=== PATIENT | male | born 1960 | race Caucasian/White ===

== ENCOUNTER → 2023-10-11 06:29 | Outpatient (REF) | payer BC, SELFPAY | LOC: REG 06:29 | PROVIDERS: ATTENDING PHYSICIAN Specialist | DX: R97.20 Elevated prostate specific antigen [PSA] (principal) | CPT/HCPCS: 36415; 84153; 84154 ==

== ENCOUNTER → 2024-02-22 06:21 | Outpatient (REF) | payer BC, SELFPAY | LOC: RAD 06:21 | PROVIDERS: ATTENDING PHYSICIAN Family Medicine | DX: Z87.891 Personal history of nicotine dependence (principal) | CPT/HCPCS: 71271 ==

== ENCOUNTER → 2024-03-18 06:21 | Outpatient (REF) | payer BC, SELFPAY | LOC: RAD 06:21 | PROVIDERS: ATTENDING PHYSICIAN Family Medicine | DX: K76.89 Other specified diseases of liver (principal) | CPT/HCPCS: 76700 ==

== ENCOUNTER → 2024-03-24 06:21 | Outpatient (REF) | payer BC, SELFPAY ==
[2024-03-25 23:46] LABS: PSA Total 6.5 ng/mL (0.0-4.0)
== END ==
LOC: REG 06:21
PROVIDERS: ATTENDING PHYSICIAN Specialist; FAMILY PHYSICIAN Family Medicine
DX: R97.20 Elevated prostate specific antigen [PSA] (principal)
CPT/HCPCS: 36415; 84153; 84154

== ENCOUNTER → 2024-08-01 06:24 | Outpatient (REF) | payer BC, SELFPAY ==
[2024-08-01 07:39] LABS: Urine Albumin Negative (Neg - Trace); Urine Bilirubin Negative (Negative); Urine Character Clear (Clear); Urine Color Yellow; Urine Glucose Negative (Negative); Urine Ketone Negative (Negative); Urine Leukocyte Negative (Negative); Urine Nitrite Negative (Negative); Urine Occult Blood Negative (Negative); Urine Specific Gravity 1.025 (<1.030); Urine Urobilinogen Negative (Neg - 1+)
[2024-08-01 07:39] LABS: % Basophils 0.6 % (0-2); % Eosinophils 4.2 % (0-6); % Immature Granulocytes 0.5 % (0-0.5); % Lymphocytes 23.3 % (20.5-51.1); % Monocytes 7.5 % (1.7-9.3); % Neutrophils 63.9 % (42.2-75.2); Absolute Basophils 0.1 10^3/uL (0-0.2); Absolute Eosinophils 0.4 10^3/uL (0-0.7); Absolute Immature Granulocytes 0.1 10^3/uL (0-0.05); Absolute Lymphocytes 2.4 10^3/uL (1.2-3.4); Absolute Monocytes 0.8 10^3/uL (0.1-0.6); Absolute Neutrophils 6.7 10^3/uL (1.4-6.5); Hematocrit 46.2 % (39.0-52.0); Hemoglobin 15.6 g/dL (13.0-18.0); Mean Corp Hgb Conc. 33.8 g/dL (33.0-37.0); Mean Corpuscular Volume 91.7 fL (80.0-94.0); Nucleated Red Blood Cells % 0 % (-); Platelet Count 225 10^3/uL (130-400); Red Blood Cell Count 5.04 10^6/uL (4.70-6.10); White Blood Cell Count 10.5 10^3/uL (4.8-10.8)
[2024-08-01 08:10] LABS: ALT (SGPT) 29 U/L (0-50); AST (SGOT) 26 U/L (17-59); Albumin 4.8 g/dl (3.5-5.0); Alkaline Phosphatase 64 U/L (38-126); Blood Urea Nitrogen 26 mg/dl (9-20); Calcium 9.3 mg/dl (8.4-10.2); Carbon Dioxide 31 mmol/L (22-30); Chloride 101 mmol/L (98-107); Glucose 90 mg/dl (70-99); HDL Cholesterol 35 mg/dl; LDL Cholesterol, Calculated 86 mg/dl; Potassium 3.8 mmol/L (3.5-5.1); Sodium 144 mmol/L (135-145); Total Bilirubin 0.8 mg/dl (0.2-1.3); Total Cholesterol 154 mg/dl (50-199); Total Protein 7.9 g/dl (6.3-8.2); Triglyceride 169 mg/dl (10-149); Very Low Density Lipoprotein 33 mg/dl (0-30); eGFR > 60.00
[2024-08-01 09:37] LABS: Glycohemoglobin (HgbA1c) 5.6 % (4.0-5.6)
[2024-08-02 22:45] LABS: PSA Total 6.3 ng/mL (0.0-4.0)
== END ==
LOC: REG 06:24
PROVIDERS: ATTENDING PHYSICIAN Family Medicine
DX: R97.20 Elevated prostate specific antigen [PSA] (principal); Z79.899 Other long term (current) drug therapy; R31.29 Other microscopic hematuria; E78.2 Mixed hyperlipidemia; I10 Essential (primary) hypertension
CPT/HCPCS: 36415; 80053; 80061; 81003; 83036; 84153; 84154; 84443; 85025

== ENCOUNTER → 2024-09-22 06:48 | Outpatient (REF) | payer BC, SELFPAY ==
[2024-09-23 17:23] LABS: PSA Total 7.9 ng/mL (0.0-4.0)
== END ==
LOC: REG 06:48
PROVIDERS: ATTENDING PHYSICIAN Specialist; FAMILY PHYSICIAN Family Medicine
DX: R97.20 Elevated prostate specific antigen [PSA] (principal)
CPT/HCPCS: 36415; 84153; 84154

== ENCOUNTER → 2024-10-03 07:42 | Outpatient (REF) | payer BC, SELFPAY | LOC: RCS 07:42 | PROVIDERS: ATTENDING PHYSICIAN Internal Medicine; FAMILY PHYSICIAN Family Medicine | DX: R07.9 Chest pain, unspecified (principal) | CPT/HCPCS: 93017; 93350 ==

== ENCOUNTER → 2024-10-17 07:51 | Outpatient (REF) | payer BC, SELFPAY | LOC: RCS 07:51 | PROVIDERS: ATTENDING PHYSICIAN Internal Medicine; FAMILY PHYSICIAN Family Medicine | DX: R07.9 Chest pain, unspecified (principal) | CPT/HCPCS: 93306 ==

== ENCOUNTER 2024-12-22 08:23 | Emergency (ER) | payer MEDICARE, BC, SELFPAY ==
[2024-12-22 08:33] VITALS: BP 124/78
[2024-12-22 08:45] VITALS: BP 124/78
--- NOTE | 2024-12-22 10:26 | ED.GENMED ---
History of Present Illness
General
Chief Complaint: Cardiac Symptoms
Time Seen by Provider: 12/22/24 10:25
History of Present Illness
History of Present Illness:
Patient is a 64-year-old male with history of hypertension, hyperlipidemia presenting to the emergency department with chest pain. Patient states that he woke up at 7:30 AM. He came to work and developed left-sided chest pain that was pressure.
He had associated diaphoresis. It lasted a minute and then resolved. He walked again and then had the same chest pain that resolved after a few minutes. 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 It
was left-sided with pressure. No nausea or vomiting. No lightheadedness or dizziness. No palpitations. Per chart review he did have a stress test completed in September which was unremarkable.
Past History
Past History
ED Past Medical History: HTN and Hypercholesterolemia
ED Past Surgical History: Other (vocal chord, hernia, lipoma)
Social History
Tobacco: Non-smoker
Phy Exam
Physical Exam
Physical Exam:
GENERAL: in no acute distress
HEENT: normocephalic, extraocular movements intact, moist oral mucosa
NECK: normal inspection
RESPIRATORY: no respiratory distress, clear to auscultation bilaterally
CARDIOVASCULAR: regular rate and rhythm
ABDOMEN/: soft, non-distended, non-tender to palpation, no rebound or guarding
EXTREMITIES: non-tender, no edema/swelling
NEUROLOGIC: awake and alert, moves all extremities
SKIN: warm
Scores
Heart Score for Chest Pain Patients
STEMI patient?: No
History: Moderately Suspicious
ECG: Normal
Age: >/= 65 years
Risk Factors: 1 or 2 Risk Factors
Troponin: </= Normal Limit
Heart Score for Chest Pain Patients: 4
Heart Score Risk: 20.3% MACE over next 6 weeks
Course
Orders/Labs/Results
Orders:
Orders
12/22/24 08:25
EKG [Electrocardiogram (*1)] Stat
Reason for Study: Chest Pain
12/22/24 08:26
EKG- Treatment ONCE
12/22/24 10:26
CR Chest - 2 Views Urgent
Comment:
Reason For Exam: chest pain
12/22/24 10:37
Basic Metabolic Panel Urgent
Complete Blood Count/With Diff Urgent
Troponin I Urgent
12/22/24 11:10
EKG- Treatment ONCE
12/22/24 13:20
Troponin I Urgent
12/22/24 13:30
Electrocardiogram (*1) Urgent
Reason for Study: Chest Pain
Abnormal Lab Results
12/22/24
10:37
WBC 10.9 H 10^3/uL
(4.8-10.8)
Absolute Neuts (auto) 7.2 H 10^3/uL
(1.4-6.5)
Absolute Monos (auto) 0.9 H 10^3/uL
(0.1-0.6)
BUN 24 H mg/dl
(9-20)
12/22/24 10:37
12/22/24 10:37
Vital Signs
Initial and Last Documented VS:
Initial Vital Signs
Temp Pulse Resp BP Pulse Ox
97.6 F 83 14 124/78 97
12/22/24 08:33 12/22/24 08:33 12/22/24 08:33 12/22/24 08:33 12/22/24 08:33
Last Documented Vital Signs
Temp Pulse Resp BP Pulse Ox
97.6 F 79 23 122/97 96
12/22/24 08:33 12/22/24 13:30 12/22/24 13:30 12/22/24 13:00 12/22/24 13:30
MDM/Problems Addressed
Differential Diagnosis Includes:
Patient is a 64-year-old male with history of hypertension, hyperlipidemia presenting to the emergency department with chest pain that started this morning. He has had no recurrent chest pain for the past 2 hours. On arrival vitals unremarkable
and exam is reassuring. Concern for ACS versus unstable angina. History and exam not consistent with PE or dissection. Less likely be pericarditis as there was no recent viral illnesses. Initial EKG per my interpretation normal sinus rhythm with
no ST changes. Will check blood work and chest x-ray. Patient will need delta troponin
*Critical Care Note
Total Time (30-74mins, 75-104mins- exclusive of procedures): Not Applicable
Update Note
Update Note:
Patient remained chest pain-free while he is been in the emergency department. Delta troponin negative. EKG with no changes. Heart score of 4. After shared decision making we will discharge patient with chest pain hotline follow-up. Strict
return precautions given. Will discharge at this time.
ED Attending Note
-
Portions of this chart may have been created with voice recognition software.� Occasional wrong word or��sound alike� substitutions may have occurred due to the inherent limitations of voice recognition software.
Discharge Plan
Departure
Patient Disposition: Home (Routine Discharge)
Date of Disposition: 12/22/24
Time of Disposition: 14:12
Patient with high blood pressure during this ER visit?: No
Discharge Problem:
Chest pain
Instructions: Chest Pain CBC Follow Up
Prescriptions:
No Action
oxycodone-acetaminophen 5 MG/325 MG tablet
1 tab PO Q6HPRN PRN (Reason: pain) Qty: 14 0RF
ondansetron 4 MG tablet,disintegrating
4 mg PO TIDPRN PRN (Reason: nausea/vomiting) Qty: 10 0RF
prednisone 10 MG tablet
10 mg PO .TAPER Qty: 30 0RF
Rx Instructions:
Take 40mg daily x3days, 30mg daily x3days,
20mg daily x3days, 10mg daily x3days.
Referrals:
Lakeshia Becerril MD [Family Provider] -
Activity Restrictions/Additional Instructions:
You were evaluated in the Emergency Department today for chest pain that is likely unstable angina. Your evaluation has shown no signs of medical conditions requiring emergent intervention at this time, however we recommend that you follow up with
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
Please schedule an appointment for follow up with your primary care physician as soon as possible.
Return to the Emergency Department if you experience worsening or uncontrolled chest pain, shortness of breath, light headedness, feeling faint, nausea, vomiting, or any other concerning symptoms.
Thank you for choosing us for your care.
Interventions
Interventions:
*Risk Screen - Suicide Last Done: 12/22/24 10:38
*General Assessment Last Done: 12/22/24 10:38
*Neglect/Abuse Screening Last Done: 12/22/24 11:36
*ED- Fall Risk Assessment Last Done: 12/22/24 11:36
*ED COVID-19 Vaccine History Last Done: 12/22/24 11:36
ED- Pulmonary Assessment Last Done: 12/22/24 10:39
ED- Cardiac Assessment Last Done: 12/22/24 10:39
Discharge Date and Time
Print Language: GUINEAN
[2024-12-22 10:37] VITALS: BMI 32.6
[2024-12-22 10:55] LABS: % Basophils 0.5 % (0-2); % Eosinophils 3.9 % (0-6); % Immature Granulocytes 0.4 % (0-0.5); % Lymphocytes 21.3 % (20.5-51.1); % Monocytes 8.2 % (1.7-9.3); % Neutrophils 65.7 % (42.2-75.2); Absolute Basophils 0.1 10^3/uL (0-0.2); Absolute Eosinophils 0.4 10^3/uL (0-0.7); Absolute Lymphocytes 2.3 10^3/uL (1.2-3.4); Absolute Monocytes 0.9 10^3/uL (0.1-0.6); Absolute Neutrophils 7.2 10^3/uL (1.4-6.5); Hematocrit 44.7 % (39.0-52.0); Mean Corp Hgb Conc. 33.6 g/dL (33.0-37.0); Mean Corpuscular Hgb 30.7 pg (27.0-31.0); Mean Corpuscular Volume 91.6 fL (80.0-94.0); Mean Platelet Volume 10.3 fL (7.4-10.4); Nucleated Red Blood Cells % 0 % (-); Platelet Count 243 10^3/uL (130-400); Red Blood Cell Count 4.88 10^6/uL (4.70-6.10); Red Cell Dist. Width 12.1 % (11.5-14.5); White Blood Cell Count 10.9 10^3/uL (4.8-10.8)
[2024-12-22 11:07] LABS: Blood Urea Nitrogen 24 mg/dl (9-20); Calcium 9.6 mg/dl (8.4-10.2); Carbon Dioxide 28 mmol/L (22-30); Chloride 104 mmol/L (98-107); Estimated Creatinine Clearance 97 ml/min; Glucose 86 mg/dl (70-99); Potassium 3.6 mmol/L (3.5-5.1); Sodium 145 mmol/L (135-145); eGFR > 60.00
[2024-12-22 11:19] LABS: Troponin I < 0.012 ng/ml
[2024-12-22 11:23] VITALS: BP 135/91
[2024-12-22 12:00] VITALS: BP 134/87
[2024-12-22 13:00] VITALS: BP 122/97
[2024-12-22 13:57] LABS: Troponin I < 0.012 ng/ml
[2024-12-22 14:00] VITALS: BP 128/53
== END 2024-12-22 14:45 | disposition home or self-care (01) ==
LOC: EMR 08:23
PROVIDERS: EMERGENCY PHYSICIAN Student in an Organized Health Care Education/Training Program; FAMILY PHYSICIAN Family Medicine
DX: R07.89 Other chest pain (principal); R61 Generalized hyperhidrosis; I10 Essential (primary) hypertension; E78.00 Pure hypercholesterolemia, unspecified
CPT/HCPCS: 99285; 71046; 80048; 84484; 85025; 93005

== ENCOUNTER 2025-01-07 08:47 | Day surgery (SDC) | payer BC, MEDICARE, SELFPAY ==
[2025-01-07] VITALS (20 sets, daily range): BP systolic 121–144; BP diastolic 73–94; BMI 30.4
[2025-01-07] MEDS: NSS 305 ML IV (09:31)
[2025-01-07 12:55] LABS: ACT-LR - POC 356 Seconds (116-155)
[2025-01-07] MEDS: NSS 1000 IV (13:16)
--- NOTE | 2025-01-07 13:25 | ITS.CL.CATH ---
[facility] - Catheterization
Cardiac Catheterization
Procedure Report:
CARDIAC CATHETERIZATION REPORT
Date of Procedure: 01/07/2025
Referring: NEGRO Degroot
INDICATION: Numerous coronary artery disease risk factors, typical angina, concern for false negative stress test.
PROCEDURE:
1. Left heart catheterization.
2. Coronary angiography.
3. Successful IFR of the proximal LAD.
A total of 37 minutes of procedural/moderate sedation was utilized. An independent medical office supervisor was present to assist with and help manage the patient's level of consciousness and physiologic status.
ACCESS:
1. 6 [place] right bradycardia artery using a modified Seldinger technique.
CATHETERS:
1. 5 [place] JR4.
2. 5 [place] JL 3.5.
3. 6 [place] EBU 3.5 guiding catheter.
HEMODYNAMIC DATA
Weight (kg): 101.0
AO (s/d/x, mmHg): 120/77/96
LV (s/x mmHg): 121/12
LEFT VENTRICULOGRAPHY: Not performed.
CORONARY ANGIOGRAPHY
Dominance: Right.
Left Main: Extremely short, essentially cloacal, bifurcating vessel. There is no coronary artery disease.
LAD: Large size vessel giving rise to several small diagonals before wrapping around the apex and supplying the distal inferior septum. There is a long, 40% lesion within the proximal and mid LAD.
Ramus: Congenitally absent.
Circumflex: Large size, nondominant vessel giving rise to 2 obtuse marginals before terminating as a left posterolateral branch. OM1 is a relatively small vessel. OM 2 is a very large vessel that supplies the majority of the inferolateral wall.
RCA: Normal size, dominant vessel with an anterior origin making cannulation challenging. There is no coronary artery disease.
INTERVENTION(S)
1. Successful IFR of the 40% proximal/mid LAD lesion, demonstrating nonocclusive disease (IFR = 0.94).
Narrative:
The decision was made to perform physiologic testing. The diagnostic catheter was removed over a wire and exchanged for a(n) 6 [place] EBU 3.5 guiding catheter. The guiding catheter was advanced into the ascending aorta and seated in the left main
coronary artery. Additional heparin was given to obtain an ACT greater than 250 seconds. An iFR wire was zeroed outside of the body, then inserted into the guiding sheath. The wire was advanced and the transducer was normalized just outside of the
guiding catheter tip. The wire was advanced into the distal LAD. Three iFR measurements were taken. The lesion was determined to be nonocclusive (0.94).
Closure Device: Vascular band.
Radiation (mGy): 732.41
DAP (cm2.Gy): 54.5302
Fluoroscopy time (minutes): 4.2
CONCLUSIONS
1. Right dominant circulation with an anterior origin of the RCA making cannulation difficult and a long, nonocclusive 40% lesion in the proximal/mid LAD (IFR = 0.94).
2. Normal filling pressures (LVEDP = 12 mmHg at 101.0 kg).
RECOMMENDATIONS:
1. Expectant management after cardiac catheterization via right radial approach.
2. Limited weight bearing on the right wrist for one week.
3. Aggressive primary prevention with high-dose, high potency statin. Increase rosuvastatin to 20 mg daily. Goal LDL <55.
4. Aspirin 81 mg daily.
5. OMT/GDMT as hemodynamics will tolerate.
6. Stable for outpatient follow-up.
Copy to: NEGRO Degroot, Jean Keys M.D., Lakeshia Becerril M.D.
Meet Hahn, DO, FACC, FACP
== END 2025-01-07 17:46 | disposition home or self-care (01) ==
LOC: CATH 08:47
PROVIDERS: ATTENDING PHYSICIAN Internal Medicine Cardiovascular Disease; FAMILY PHYSICIAN Family Medicine; OTHER PHYSICIAN Internal Medicine
DX: I25.119 Atherosclerotic heart disease of native coronary artery with unspecified angina pectoris (principal); I10 Essential (primary) hypertension; E78.2 Mixed hyperlipidemia; Z79.82 Long term (current) use of aspirin; M51.369 Other intervertebral disc degeneration, lumbar region without mention of lumbar back pain or lower extremity pain; Z79.899 Other long term (current) drug therapy
CPT/HCPCS: 93799; 99152; 99153; 93458; C1769; C1894; Q9967

== ENCOUNTER → 2025-02-27 06:25 | Outpatient (REF) | payer BC, MEDICARE, SELFPAY | LOC: RAD 06:25 | PROVIDERS: ATTENDING PHYSICIAN Family Medicine | DX: Z87.891 Personal history of nicotine dependence (principal); Z12.2 Encounter for screening for malignant neoplasm of respiratory organs | CPT/HCPCS: 71271 ==

== ENCOUNTER → 2025-03-31 06:20 | Outpatient (REF) | payer BC, MEDICARE, SELFPAY | LOC: REG 06:20 | PROVIDERS: ATTENDING PHYSICIAN Specialist; FAMILY PHYSICIAN Family Medicine | DX: R97.20 Elevated prostate specific antigen [PSA] (principal) | CPT/HCPCS: 36415; 84153; 84154 ==

== ENCOUNTER → 2025-05-17 07:33 | Outpatient (REF) | payer BC, MEDICARE, SELFPAY | LOC: MRI 3T 07:33 | PROVIDERS: ATTENDING PHYSICIAN Specialist; FAMILY PHYSICIAN Family Medicine | DX: R97.20 Elevated prostate specific antigen [PSA] (principal) | CPT/HCPCS: 72197; A9575 ==